=== PATIENT | female | born 1985 | race Caucasian/White ===

== ENCOUNTER 2016-10-26 04:38 | Inpatient (IN) | payer MEDICAID ==
[2016-10-26] VITALS (30 sets, daily range): BP systolic 85–171; BP diastolic 51–114; PULSE 66–98; RESP 16–20; TEMP 97.9–98.3; O2SAT 96–97
[~2016-10-26 04:38] MED LIST: POLY10O OD; Z.0.NO CURRENT MEDS; [UNRECOGNIZED DRUG - CODE] OD
[2016-10-26] MEDS ORDERED: CARV6.25 PO (04:59)
[2016-10-26] MEDS ORDERED: LISI10TA3 PO (04:59)
[2016-10-26] MEDS ORDERED: SPIR25TA PO (04:59)
[2016-10-26] MEDS ORDERED: SODIUM CHLORIDE 0.9% FLUSH 5 ML FLUSH IVF PRN (05:15)
[2016-10-26] MEDS ORDERED: ACETAMINOPHEN 325 MG TAB PO ONE (05:15)
[2016-10-26] MEDS ORDERED: hydrALAZINE HCL 20 MG/ML VIAL IV PUSH ONE (05:15)
[2016-10-26 05:17] LABS: AUTOMATED NEUTROPHIL # 12.6 TH/MM3 (1.8-7.7); BASOPHIL # 0.2 TH/MM3 (0-0.2); BASOPHIL % 1.3 % (0.0-2.0); EOSINOPHIL # 0.2 TH/MM3 (0-0.4); EOSINOPHIL % 0.9 % (0.0-4.0); HEMATOCRIT 31.9 % (35.0-46.0); HEMO FLAGS DIFF FINAL; LYMPH % 14.4 % (9.0-44.0); LYMPHOCYTE # 2.4 TH/MM3 (1.0-4.8); MEAN CELL VOLUME 86.4 FL (80.0-100.0); MEAN CORPUSCULAR HEMOGLOBIN 28.4 PG (27.0-34.0); MEAN CORPUSCULAR HGB CONC 32.9 % (32.0-36.0); MONO % 6.7 % (0.0-8.0); NEUT % 76.7 % (16.0-70.0); PLATELET COUNT 521 TH/MM3 (150-450); RED CELL DISTRIBUTION WIDTH 14.7 % (11.6-17.2); WHITE BLOOD COUNT 16.4 TH/MM3 (4.0-11.0)
[2016-10-26 05:42] LABS: ALKALINE PHOSPHATASE 136 U/L (45-117); ALT (GPT) 31 U/L (10-53); ANION GAP 11 MEQ/L (5-15); AST (GOT) 29 U/L (15-37); BICARBONATE 23.3 MEQ/L (21.0-32.0); BLOOD UREA NITROGEN 11 MG/DL (7-18); CHLORIDE 106 MEQ/L (98-107); GLOMERULAR FILTRATION RATE 90 ML/MIN (>89); SODIUM (NA) 140 MEQ/L (136-145); TOTAL BILIRUBIN ADULT 0.3 MG/DL (0.2-1.0)
[2016-10-26 05:47] LABS: APTT (PATIENT) 29.4 SEC (24.3-30.1); INTERNATIONAL NORMALIZED RATIO 0.9 RATIO
--- NOTE | 2016-10-26 05:55 | PD ---
HPI Chief Complaint: Respiratory Distress Time Seen by Provider: 04:49 Travel History International Travel<30 days: No Contact w/Intl Traveler<30days: No Traveled to known affect area: No History of Present Illness HPI 31-year-old female with on 10/19/16 in a hospital in [place], no significant complications, developed cardiomyopathy, discharged 2 days ago with coronary, lisinopril, and spironolactone, here for evaluation of elevated blood pressure, headache, shortness of breath, and feeling dehydrated. Patient woke up from sleep with a "pounding" diffuse headache. She checked her blood pressure and noted that it was elevated. Patient also feels a little short of breath which is at rest, worse with exertion, and is complaining of a mild sharp pain in her left chest. No fevers or chills. She has had nausea and a few episodes of vomiting. No cough. PFSH Past Medical History Cardiovascular Problems: Yes (post cardiomyopathy) Medical other: Yes (cardiomyopathy post delivery) ?: Not Past Surgical History Appendectomy: Yes Social History Alcohol Use: No Tobacco Use: Yes Substance Use: No Allergies-Medications (Allergen,Severity, Reaction): Coded Allergies: No Known Allergies (Verified , 10/26/16) Reported Meds & Prescriptions Reported Meds & Active Scripts Active Reported Coreg (Carvedilol) 6.25 Mg Tab 6.25 Mg PO BID Spironolactone 25 Mg Tab 25 Mg PO DAILY Lisinopril 10 Mg Tab 10 Mg PO DAILY Review of Systems Except as stated in HPI: all other systems reviewed are Neg Physical Exam Narrative GENERAL: Well-developed, well-nourished, comfortable, no acute distress. SKIN: Warm and dry. HEAD: Atraumatic. Normocephalic. EYES: Pupils equal and round. No scleral icterus. No injection or drainage. ENT: Mucous membranes pink and moist. NECK: Trachea midline. No JVD. No nuchal rigidity. CARDIOVASCULAR: Regular rate and rhythm. RESPIRATORY: No accessory muscle use. Clear to auscultation. Breath sounds equal bilaterally. GASTROINTESTINAL: Abdomen soft, non-tender, nondistended. MUSCULOSKELETAL: No obvious deformities. No clubbing. No cyanosis. No edema. NEUROLOGICAL: Awake and alert. No obvious cranial nerve deficits. Motor grossly within normal limits. Normal speech. PSYCHIATRIC: Appropriate mood and affect; insight and judgment normal. Data Data Last Documented VS Vital Signs Date Time Temp Pulse Resp B/P Pulse Ox O2 Delivery O2 Flow Rate FiO2 10/26/16 06:33 96 16 149/95 97 Room Air 10/26/16 04:45 97.9 Orders Complete Blood Count With Diff (10/26/16 05:02) Comprehensive Metabolic Panel (10/26/16 05:02) Prothrombin Time / Inr (Pt) (10/26/16 05:02) Act Partial Throm Time (Ptt) (10/26/16 05:02) Urinalysis - C+S If Indicated (10/26/16 05:02) Iv Access Insert/Monitor (10/26/16 05:02) Ecg Monitoring (10/26/16 05:02) Oximetry (10/26/16 05:02) Sodium Chloride 0.9% Flush (Ns Flush) (10/26/16 05:15) Electrocardiogram (10/26/16 05:02) Chest, Single Ap (10/26/16 ) Hydralazine Inj (Apresoline Inj) (10/26/16 05:15) Acetaminophen (Tylenol) (10/26/16 05:15) B-Type Natriuretic Peptide (10/26/16 05:05) Urine Culture (10/26/16 05:50) Metoclopramide Inj (Reglan Inj) (10/26/16 06:15) Labs Laboratory Tests Test 10/26/16 10/26/16 10/26/16 10/26/16 05:10 05:11 05:20 05:50 White Blood Count 16.4 TH/MM3 Red Blood Count 3.70 MIL/MM3 Hemoglobin 10.5 GM/DL Hematocrit 31.9 % Mean Corpuscular Volume 86.4 FL Mean Corpuscular Hemoglobin 28.4 PG Mean Corpuscular Hemoglobin 32.9 % Concent Red Cell Distribution Width 14.7 % Platelet Count 521 TH/MM3 Mean Platelet Volume 8.2 FL Neutrophils (%) (Auto) 76.7 % Lymphocytes (%) (Auto) 14.4 % Monocytes (%) (Auto) 6.7 % Eosinophils (%) (Auto) 0.9 % Basophils (%) (Auto) 1.3 % Neutrophils # (Auto) 12.6 TH/MM3 Lymphocytes # (Auto) 2.4 TH/MM3 Monocytes # (Auto) 1.1 TH/MM3 Eosinophils # (Auto) 0.2 TH/MM3 Basophils # (Auto) 0.2 TH/MM3 CBC Comment DIFF FINAL Differential Comment Sodium Level 140 MEQ/L Potassium Level 4.0 MEQ/L Chloride Level 106 MEQ/L Carbon Dioxide Level 23.3 MEQ/L Anion Gap 11 MEQ/L Blood Urea Nitrogen 11 MG/DL Creatinine 0.74 MG/DL Estimat Glomerular Filtration 90 ML/MIN Rate Random Glucose 124 MG/DL Calcium Level 8.8 MG/DL Total Bilirubin 0.3 MG/DL Aspartate Amino Transf 29 U/L (AST/SGOT) Alanine Aminotransferase 31 U/L (ALT/SGPT) Alkaline Phosphatase 136 U/L Total Protein 6.8 GM/DL Albumin 2.4 GM/DL B-Type Natriuretic Peptide 834 PG/ML Prothrombin Time 10.0 SEC Prothromb Time International 0.9 RATIO Ratio Activated Partial 29.4 SEC Thromboplast Time Urine Color YELLOW Urine Turbidity HAZY Urine pH 7.0 Urine Specific [place] 1.010 Urine Protein TRACE mg/dL Urine Glucose (UA) NEG mg/dL Urine Ketones NEG mg/dL Urine Occult Blood MOD Urine Nitrite NEG Urine Bilirubin NEG Urine Urobilinogen LESS THAN 2.0 MG/DL Urine Leukocyte Esterase LARGE Urine RBC /hpf Urine WBC 80 /hpf Urine Squamous Epithelial 1 /hpf Cells Urine Renal Epithelial Cells 4 /hpf Urine Bacteria RARE /hpf Urine Mucus FEW /lpf Microscopic Urinalysis Comment CULTURE INDICATED MDM Medical Decision Making Medical Screen Exam Complete: Yes Emergency Medical Condition: Yes Interpretation(s) EKG: Sinus, rate 95, normal intervals, no acute ischemic abnormality. Differential Diagnosis Preeclampsia, pulmonary edema, cardiomyopathy, pneumonia, PE, ACS, meningitis/ encephalitis unlikely Narrative Course Initial vital signs show heart rate 93, blood pressure 171/114, pulse ox 96% on room air, oral temp of 97.9F CBC shows to be BC 16.4, hemoglobin 10.5, hematocrit 31.9, platelets 521 CMP is unremarkable. BNP is 834 UA shows hazy urine, moderate occult blood, large leukocyte esterase, innumerable rbc's, 80 wbc's, rare bacteria, few mucus. This is not likely a UTI and is likely secondary to normal discharge . Chest x-ray interpreted by me shows no infiltrate, no pneumothorax, no free air. The patient was given a dose of hydralazine and her blood pressure improved to 137/84. She was given a dose of Tylenol with moderate improvement in her headache. Case discussed with OB hospitalist Dr. Odonnell who would like the patient to be transferred to the L&D floor for further monitoring and possible overnight admission. Diagnosis Primary Impression: hypertension Carlos Guzman MD Oct 26, 2016 05:55
[2016-10-26 06:06] LABS: BACTERIA, URINE RARE /hpf; BLOOD, URINE MOD (NEG); GLUCOSE,URINE NEG (NEG); KETONE, URINE NEG (NEG); MUCUS URINE FEW /lpf (OCC); NITRITE,URINE NEG (NEG); RENAL EPITHELIAL CELLS 4 /hpf; SQUAMOUS EPITHELIAL CELL URINE 1 /hpf (0-5); URINE COLOR YELLOW (YELLW/STRAW)
[2016-10-26 06:07] LABS: COMMENT (UR) CULTURE INDICATED; CULTURE IF INDICATED CULTURE INDICATED
[2016-10-26] MEDS ORDERED: METOCLOPRAMIDE HCL 10 MG/2 ML VIAL IV PUSH ONE (06:15)
--- NOTE | 2016-10-26 06:49 | RADRPT ---
EXAM DATE/TIME: 10/26/2016 05:46 [facility] COMPARISON: No previous studies available for comparison. INDICATIONS : Shortness of breath. MEDICAL HISTORY : None. SURGICAL HISTORY : None. ENCOUNTER: Initial ACUITY: 1 day PAIN SCORE: 0/10 LOCATION: Bilateral chest FINDINGS: A single view of the chest demonstrates the lungs to be symmetrically aerated without evidence of mas s, infiltrate or effusion. The cardiomediastinal contours are unremarkable. Osseous structures are intact. CONCLUSION: No acute disease. Arvind Poloe MD on October 26, 2016 at 6:47 Board Certified Radiologist. This report was verified electronically.
--- NOTE | 2016-10-26 07:43 | HHI.HP ---
HPI Chief Complaint Shortness of breath Date Seen: Oct 26, 2016 Travel History International Travel<30 Days: No Contact w/Intl Traveler<30Days: No Known Affected Area: No History of Present Illness HPI She has 31-year-old white female G3 now P3 who is a week from delivery vaginally in [place] induced for -induced hypertension, patient developed cardiomyopathy and was in the ICU there where hospital do not have the record yet,do not know what her ejection fraction was or other treatments but she was diuresed medicated was on magnesium sulfate for some period of time and was discharged on Coreg lisinopril and spironolactone. She was discharged home did well for for 5 days and now presents with shortness of breath mainly when she lays down ,, her uterine bleeding is minimal she has no increase in fever or abdominal pain. She was seen in the emergency room here at [facility] this morning with a blood pressure 170/110 and had several blood pressures in the 160 and 150 over 100s, she has trace protein in her urine and minimal edema, her chest x-ray was clear her EKG sinus rhythm she's transferred to the labor and delivery floor for cardiomyopathy and preeclampsia Para: 3 : 3 History Obstetric History Obstetric History 3 vaginal deliveries this last delivery was associated hypertension was induced for that hypertensive problem she states that she's had no history of that with her other babies Social History Alcohol Use: No Tobacco Use: Yes Substance Abuse: No Allergies-Medications (Allergen,Severity, Reaction): Coded Allergies: No Known Allergies (Verified , 10/26/16) Home Meds Reported Medications Carvedilol (Coreg)6.25 Mg Tab6.25 Mg PO BID #60 TAB Ref 0 10/26/16 Spironolactone 25 Mg Tab25 Mg PO DAILY #30 TAB Ref 0 10/26/16 Lisinopril 10 Mg Tab10 Mg PO DAILY #30 TAB Ref 0 10/26/16 Discontinued Reported Medications Miscellaneous (No Current Meds) Misc Ref 0 08/23/08 Discontinued Scripts Nepafenac (Nevanac)0.1 % Sus1 Drop OD Q8 #1 Ref 0 SHAKE WELL BEFORE USING Prov:Daniel Conde Jr, MD 08/23/08 Polymyxin/Trimethoprim (Polytrim Opth)10 Ml Soln1 Drop OD Q4 7 Days Ref 0 Prov:Daniel Conde Jr, MD 08/23/08 Review of Systems Respiratory: Short of Breath Physical Exam Vital Signs Date Time Temp Pulse Resp B/P Pulse Ox O2 Delivery O2 Flow Rate FiO2 10/26/16 06:33 96 16 149/95 97 Room Air 10/26/16 06:05 89 16 157/105 97 Room Air 10/26/16 05:28 16 97 10/26/16 05:27 16 97 10/26/16 05:25 98 16 168/103 97 Room Air 10/26/16 04:45 97.9 93 20 171/114 96 Narrative GENERAL: Well-nourished, well-developed patient. SKIN: Warm and dry. HEAD: Normocephalic and atraumatic. EYES: No scleral icterus. No injection or drainage. ENT: No nasal drainage noted. Mucous membranes pink. Airway patent. NECK: Supple, trachea midline. No JVD. CARDIOVASCULAR: Regular rate and rhythm without murmurs, gallops, or rubs. RESPIRATORY: Breath sounds equal bilaterally. No accessory muscle use. Clear to auscultation BREASTS: Bilateral exam showed no masses , no retractions, no nipple discharge. ABDOMEN/GI: Abdomen soft, non-tender, bowel sounds present, no rebound, no guarding uterus below umbilicus EXTREMITIES: No cyanosis or edema. BACK: Nontender without obvious deformity. No CVA tenderness. NEUROLOGICAL: Awake and alert. Motor and sensory grossly within normal limits. Five out of 5 muscle strength in all muscle groups. Normal speech. Data Data Orders Complete Blood Count With Diff (10/26/16 05:02) Comprehensive Metabolic Panel (10/26/16 05:02) Prothrombin Time / Inr (Pt) (10/26/16 05:02) Act Partial Throm Time (Ptt) (10/26/16 05:02) Urinalysis - C+S If Indicated (10/26/16 05:02) Iv Access Insert/Monitor (10/26/16 05:02) Ecg Monitoring (10/26/16 05:02) Oximetry (10/26/16 05:02) Sodium Chloride 0.9% Flush (Ns Flush) (10/26/16 05:15) Electrocardiogram (10/26/16 05:02) Chest, Single Ap (10/26/16 ) Hydralazine Inj (Apresoline Inj) (10/26/16 05:15) Acetaminophen (Tylenol) (10/26/16 05:15) B-Type Natriuretic Peptide (10/26/16 05:05) Urine Culture (10/26/16 05:50) Metoclopramide Inj (Reglan Inj) (10/26/16 06:15) Labs Laboratory Tests Test 10/26/16 10/26/16 10/26/16 10/26/16 05:10 05:11 05:20 05:50 White Blood Count 16.4 Red Blood Count 3.70 Hemoglobin 10.5 Hematocrit 31.9 Mean Corpuscular Volume 86.4 Mean Corpuscular Hemoglobin 28.4 Mean Corpuscular Hemoglobin 32.9 Concent Red Cell Distribution Width 14.7 Platelet Count 521 Mean Platelet Volume 8.2 Neutrophils (%) (Auto) 76.7 Lymphocytes (%) (Auto) 14.4 Monocytes (%) (Auto) 6.7 Eosinophils (%) (Auto) 0.9 Basophils (%) (Auto) 1.3 Neutrophils # (Auto) 12.6 Lymphocytes # (Auto) 2.4 Monocytes # (Auto) 1.1 Eosinophils # (Auto) 0.2 Basophils # (Auto) 0.2 CBC Comment DIFF FINAL Differential Comment Sodium Level 140 Potassium Level 4.0 Chloride Level 106 Carbon Dioxide Level 23.3 Anion Gap 11 Blood Urea Nitrogen 11 Creatinine 0.74 Estimat Glomerular Filtration 90 Rate Random Glucose 124 Calcium Level 8.8 Total Bilirubin 0.3 Aspartate Amino Transf 29 (AST/SGOT) Alanine Aminotransferase 31 (ALT/SGPT) Alkaline Phosphatase 136 Total Protein 6.8 Albumin 2.4 B-Type Natriuretic Peptide 834 Prothrombin Time 10.0 Prothromb Time International 0.9 Ratio Activated Partial 29.4 Thromboplast Time Urine Color YELLOW Urine Turbidity HAZY Urine pH 7.0 Urine Specific [place] 1.010 Urine Protein TRACE Urine Glucose (UA) NEG Urine Ketones NEG Urine Occult Blood MOD Urine Nitrite NEG Urine Bilirubin NEG Urine Urobilinogen LESS THAN 2.0 Urine Leukocyte Esterase LARGE Urine RBC Urine WBC 80 Urine Squamous Epithelial 1 Cells Urine Renal Epithelial Cells 4 Urine Bacteria RARE Urine Mucus FEW Microscopic Urinalysis Comment CULTURE INDICATED Date/Time Procedure Status Source Growth 10/26/16 05:50 Urine Culture Worksheet Urine Clean Catch Pending Assessment/Plan Assessment and Plan She is 31-year-old white female is a weeks status post vaginal delivery in [place] for hypertension and induction , she developed cardiomyopathy afterwards was in the ICU was diuresed and treated I do not have the records yet on the ejection fraction or other parameters are her condition there but she is presented here with exacerbation of same with shortness of breath mainly when she is lying back she's better when she sits up classic congestive heart failure type findings, her blood pressure here 170/110,, 160s over 105, protein trace edema minimal, her lungs are clear and clear on x-ray, EKG sinus rhythm Plan is to admit the patient hospital administer magnesium sulfate once again for 12-24 hrs. check an ECHO for ejection fraction, antihypertensives when necessary., observe for clinical improvement, cardiology consult Jorge Odonnell II, MD Oct 26, 2016 07:43
[2016-10-26] MEDS ORDERED: CALCIUM GLUCONATE 10% 1 GM/10 ML VIAL IV PUSH PRN (08:00)
[2016-10-26] MEDS ORDERED: ONDANSETRON HCL 4 MG/2 ML VIAL IV PRN (08:00)
[2016-10-26] MEDS ORDERED: NIFEdipine 10 MG CAP PO PRN ×3 (08:00→08:30)
[2016-10-26] MEDS ORDERED: MAGNESIUM SULFATE 4 GM PREMIX 100 ML IV ONE (08:00)
[2016-10-26] MEDS: SODIUM CHLORIDE 0.9% FLUSH 5 ML FLUSH IV SCH (09:00)
[2016-10-26] MEDS ORDERED: LABETALOL HCL 100 MG/20 ML VIAL IV PUSH PRN (09:00)
--- NOTE | 2016-10-26 09:35 | EKG ---
Date Performed: 10/26/2016 Time Performed: 05:43:11 PTAGE: 31 years EKG: Sinus rhythm ABNORMAL ECG NO PREVIOUS TRACING DOCTOR: Gabriel Vogt Interpretating Date/Time 10/26/2016 09:34:05
[2016-10-26] MEDS: LACTATED RINGER'S 1000 ML INJ 1,000 ML IV SCH (10:00)
[2016-10-26] MEDS: MAGNESIUM SULFATE 40 GM PREMIX 1,000 ML IV SCH (10:02)
[2016-10-26] MEDS: SODIUM CHLORIDE 0.9% FLUSH 5 ML FLUSH IV PRN (10:03)
[2016-10-26] MEDS: ACETAMINOPHEN 325 MG TAB PO PRN ×2 (10:23→15:33)
[2016-10-26] MEDS: SULFAMETHOXAZOLE-TRIMETHOPRIM DS 800-160 MG TAB PO SCH ×2 (13:45→21:14)
[2016-10-26] MEDS: LISINOPRIL 10 MG TAB PO SCH (15:26)
[2016-10-26] MEDS: CARVEDILOL 6.25 MG TAB PO SCH ×2 (15:26→21:14)
[2016-10-26] MEDS: SPIRONOLACTONE 25 MG TAB PO SCH (15:26)
--- NOTE | 2016-10-26 19:20 | MB ---
cc: ENIO MARSHALL DATE OF CONSULTATION 10/26/2016 REASON FOR CONSULTATION Ms. Brian is a 31-year-old white female one week . She was induced due to preeclampsia. She was diagnosed with cardiomyopathy. She was transferred to [facility] from [place] for further management. PAST MEDICAL HISTORY She has had past medical history positive for: 1. Three deliveries. 2. History of hypertension. 3. Recent diagnosis of cardiomyopathy. 4. History of preeclampsia. MEDICATIONS Include: 1. Carvedilol. 2. Spironolactone. 3. Lisinopril. ALLERGIES NONE. SOCIAL HISTORY The patient is a smoker. She smoked . She does not drink alcohol. Denies using drugs. FAMILY HISTORY Negative for coronary artery disease. REVIEW OF SYSTEMS Otherwise negative. PHYSICAL EXAMINATION VITAL SIGNS: Blood pressure 121/88, pulse 68 and regular. HEENT: Negative. 2+ carotid upstroke. No bruits. LUNGS: Clear. HEART: Regular with no murmur, gallop or rub. ABDOMEN: Soft. No bruits. EXTREMITIES: Without edema. 2+ distal pulses. NEUROLOGICAL: Grossly nonfocal. EKG was reviewed and showed normal sinus rhythm with normal axis and intervals. No acute changes. LABORATORY DATA Hemoglobin 10.5. Potassium 4.0. Creatinine 0.7. AST 29, ALT 31. BNP 834. DIAGNOSES 1. cardiomyopathy. 2. Hypertension. 3. Preeclampsia. 4. Recent vaginal delivery. 5. Smoking. DISPOSITION Ms. Brian will be monitored on telemetry. She will be treated for congestive heart failure with beta laxmi, CINDY inhibitor and spironolactone. We need to control well her hypertension. We will obtain echocardiogram to evaluate her left ventricular function. I will follow her for cardiology during her hospitalization. She will then follow up with her physicians in [place] after discharge. MD TRACE Sampson/LUDA /4:58 PM /7:13 PM JAMAR
[2016-10-27] VITALS (26 sets, daily range): BP systolic 92–135; BP diastolic 59–89; PULSE 61–94; RESP 16–18; TEMP 97.8–98; O2SAT 97–99
[2016-10-27] MEDS: MAGNESIUM SULFATE 40 GM PREMIX 1,000 ML IV SCH (03:46)
[2016-10-27] MEDS: ACETAMINOPHEN 325 MG TAB PO PRN (05:15)
--- NOTE | 2016-10-27 08:47 | HHI.OB ---
Subjective Post Day: 8 Remarks No new complaints today; patient says she is tired now that she is on Magnesium , which should be finished ~10am. She expresses concerns that her BP meds will need to be adjusted once off the magnesium to control blood pressure since they were 160s-170s/100s-110s at home prior to arrival. She denies chest pain, shortness of breath, nausea, vomiting. She states she is hungry. (Aditi Stevenson MD R1) Remarks I rounded on the patient. I rounded with the resident. I reviewed the resident' s assessment and plan of care for this patient. I am in agreement with the plan of care for this patient. (Raiza Vaz MD) Objective Vitals/I&O Vital Signs Date Time Temp Pulse Resp B/P Pulse Ox O2 Delivery O2 Flow Rate FiO2 10/27/16 06:09 18 10/27/16 06:00 71 111/77 10/27/16 05:00 69 114/73 10/27/16 04:21 18 10/27/16 04:00 68 104/70 10/27/16 03:35 16 10/27/16 03:00 61 108/76 10/27/16 02:15 16 10/27/16 02:00 65 107/76 10/27/16 01:36 18 10/27/16 01:00 65 98/63 10/27/16 00:23 18 10/27/16 00:00 67 92/59 10/26/16 23:49 98.1 10/26/16 23:47 68 90/57 10/26/16 23:46 18 10/26/16 23:00 67 85/51 10/26/16 22:46 18 10/26/16 22:00 69 99/63 10/26/16 21:29 18 10/26/16 21:00 70 107/80 10/26/16 20:22 18 10/26/16 20:00 69 105/75 10/26/16 19:47 98.3 10/26/16 19:45 18 10/26/16 19:00 66 107/70 10/26/16 18:00 77 126/82 10/26/16 17:10 20 10/26/16 17:00 74 112/76 10/26/16 17:00 18 10/26/16 16:00 71 129/86 10/26/16 15:00 68 121/88 10/26/16 15:00 20 10/26/16 14:00 72 125/93 10/26/16 13:00 82 118/95 10/26/16 12:48 85 127/94 10/26/16 11:23 20 10/26/16 10:23 20 10/26/16 10:23 20 10/26/16 10:16 135/96 10/26/16 10:16 89 10/26/16 10:16 89 10/26/16 10:07 90 134/92 10/26/16 09:56 88 147/94 Objective Remarks GENERAL: Well-nourished, well-developed female in no acute distress. CARDIOVASCULAR: Regular rate and rhythm without murmurs, gallops, or rubs. RESPIRATORY: Breath sounds equal bilaterally. No accessory muscle use. No crackles or wheezes. ABDOMEN/GI: Abdomen soft, non-tender. Fundus: Firm, non-tender below umbilicus. GENITOURINARY: Light bleeding. EXTREMITIES: No cyanosis or edema, non-tender, without signs of DVT. 2+ pulses in upper and lower extremities bilaterally. Medications and IVs Current Medications Medications (Trade) Dose Ordered Sig/Sandra Route Start Time Stop Time Status Last Admin IV Flush 2 ml 2 ml UNSCH PRN IVF 10/26/16 05:15 10/26/16 06:04 (Lr 1000 ml Inj) 1,000 ml @ 75 mls/hr [id number] IV 10/26/16 07:46 10/26/16 10:00 (NS Flush) 2 ml UNSCH PRN IV 10/26/16 08:00 10/26/16 10:03 IV Flush 2 ml 2 ml BID IV 10/26/16 09:00 (Magnesium Sulfate 40 Gm Premix) 1,000 ml @ 50 mls/hr Q20H IV 10/26/16 07:46 10/26/16 10:02 (Calcium Gluconate Inj) 1 gm UNSCH PRN IV PUSH 10/26/16 08:00 (Tylenol) 650 mg Q4H PRN PO 10/26/16 08:00 10/27/16 05:15 (Zofran Inj) 4 mg Q6H PRN IV 10/26/16 08:00 (Bactrim Ds 800-160 Mg) 1 tab Q12HR PO 10/26/16 09:00 10/26/16 21:14 (Coreg) 6.25 mg BID PO 10/26/16 14:00 10/26/16 21:14 (Prinivil) 10 mg DAILY PO 10/26/16 14:00 10/26/16 15:26 (Aldactone) 25 mg DAILY PO 10/26/16 14:00 10/26/16 15:26 (Aditi Stevenson MD R1) Assessment/Plan Assessment and Plan 31-year-old female , one-week post- status post vaginal delivery in [place] for hypertension and induction. She presented to OB ED with SOB and HTN at home in 170s/110s range, concerning for acute congestive heart failure. She developed cardiomyopathy requiring ICU stay for diuresis and medical management of HTN. HTN now well-controlled, 127/84 most recently; 110s/70s over last 12 hours EKG sinus rhythm CXR showing no evidence of cardiac enlargement or effusion Echo from outside hospital - records pending Echo done at [facility], read is still pending Post- CM -Cardiology consulted - EKG, echo ordered -Continue Coreg, lisinopril, spironolactone -Strict BP management, currently 110s/70s HTN -Treated for Pre-E with Mg at [facility] -Now 110s/70s -Continue Mg for 24 hr - d/c approx 10am -Continue medications as above, titrate as needed once Mg is discontinued -Add additional anti-HTN only after other medications maximized per medical billing specialist or PCP DW Dr. Fernandez Discharge Planning Will follow-up with cardiology for recommendations regarding discharge planning (Aditi Stevenson MD R1) Aditi Stevenson MD R1 Oct 27, 2016 08:47 Raiza Vaz MD Oct 27, 2016 10:31
[2016-10-27] MEDS: LISINOPRIL 10 MG TAB PO SCH (08:52)
[2016-10-27] MEDS: SULFAMETHOXAZOLE-TRIMETHOPRIM DS 800-160 MG TAB PO SCH ×2 (08:52→21:41)
[2016-10-27] MEDS: SPIRONOLACTONE 25 MG TAB PO SCH (08:52)
[2016-10-27] MEDS: CARVEDILOL 6.25 MG TAB PO SCH ×2 (08:52→21:41)
[2016-10-27] MEDS: SODIUM CHLORIDE 0.9% FLUSH 5 ML FLUSH IV PRN (08:59)
[2016-10-27] MEDS: SODIUM CHLORIDE 0.9% FLUSH 5 ML FLUSH IV SCH ×3 (09:00→21:41)
[2016-10-27] MEDS: LACTATED RINGER'S 1000 ML INJ 1,000 ML IV SCH ×2 (10:26→23:46)
--- NOTE | 2016-10-27 10:37 | EC ---
Study Study Date:10/26/2016 STUDY CONCLUSIONS SUMMARY - Left ventricle: The cavity size was normal. Wall thickness was normal. Systolic function was moderately to severely reduced. The estimated ejection fraction was in the range of 30% to 35%. Wall motion was normal; there were no regional wall motion abnormalities. - Mitral valve: Mild regurgitation. - Tricuspid valve: Mild regurgitation. If LV function is below 40, please consider prescribing an ACEI or ARB or document rationale for non-use. PROCEDURE DATA STUDY STATUS: Elective. Procedure: Transthoracic echocardiography. Image quality was good. Scanning was performed from the parasternal, apical, and subcostal acoustic windows. Study completion: The patient tolerated the procedure well. Transthoracic echocardiography. M-mode, complete 2D, complete spectral Doppler, and color Doppler. Height: Height: 62in. Weight: Weight: 119.8lb. Body mass index: BMI: 21.9kg/m^2. Body surface area: BSA: 1.54m^2. Patient status: Inpatient. CARDIAC ANATOMY LEFT VENTRICLE: The cavity size was normal. Wall thickness was normal. Systolic function was moderately to severely reduced. The estimated ejection fraction was in the range of 30% to 35%. Wall motion was normal; there were no regional wall motion abnormalities. AORTIC VALVE: Trileaflet; normal thickness leaflets. Doppler: Transvalvular velocity was within the normal range. There was no stenosis. No regurgitation. Valve area: 1.76cm^2(VTI). Indexed valve area: 1.14cm^2/m^2 (VTI). Valve area: 1.87cm^2 (Vmax). Indexed valve area: 1.21cm^2/m^2 (Vmax). Mean gradient: 3mm Hg (S). AORTA: Aortic root: The aortic root was normal in size. MITRAL VALVE: Structurally normal valve. Doppler: Transvalvular velocity was within the normal range. There was no evidence for stenosis. Mild regurgitation. Peak gradient: 3mm Hg (D). LEFT ATRIUM: The atrium was normal in size. RIGHT VENTRICLE: The cavity size was normal. Wall thickness was normal. PULMONIC VALVE: Doppler: Transvalvular velocity was within the normal range. There was no evidence for stenosis. No regurgitation. TRICUSPID VALVE: Structurally normal valve. Doppler: Transvalvular velocity was within the normal range. Mild regurgitation. PULMONARY ARTERY: The main pulmonary artery was normal-sized. Systolic pressure was within the normal range. RIGHT ATRIUM: The atrium was normal in size. PERICARDIUM: There was no pericardial effusion. SYSTEMIC VEINS: Inferior vena cava: The vessel was normal in size. Patient weight: 119.8lb _Ejection fraction:_ 65-75% _Fractional shortening:_ 32% up to 5Kg 5-11.5Kg 11.6-22.9Kg 23-45Kg 45-57Kg Aortic Root 7-13 <17 13-22 17-27 17-27 LA diam 6-13 <23 24-38 33-47 37-40 RVID 10-17 7-15 7-15 7-18 8-17 LVIDd 12-22 <32 24-38 33-47 37-40 LVPW 2-4 3-6 5-7 6-8 7-8 IVS 2-4 3-6 5-7 6-8 7-8 BASIC MEASUREMENTS ADULT NORMAL Left ventricle LV internal dimension, ED, chordal *53.1 mm 43-52 level, PLAX LV internal dimension, ES, chordal *46.9 mm 23-38 level, PLAX Fractional shortening, chordal level, *12 % >29 PLAX LV posterior wall thickness, ED 6.85 mm IVS/LVPW ratio, ED 1.01 <1.3 Volume, ED, MOD, 1-plane 133 ml Volume, ES, MOD, 1-plane 79 ml Ejection fraction, MOD, 1-plane 41 % Stroke volume, MOD, 1-plane 54 ml Volume index, ED, MOD, 1-plane 86 ml/m^2 Volume index, ES, MOD, 1-plane 51 ml/m^2 Stroke index, MOD, 1-plane 35.1 ml/m^2 Volume, ED, MOD, 2-plane 139 ml Volume, ES, MOD, 2-plane 82 ml Ejection fraction, MOD, 2-plane 41 % Stroke volume, MOD, 2-plane 57 ml Volume index, ED, MOD, 2-plane 90 ml/m^2 Volume index, ES, MOD, 2-plane 53 ml/m^2 Stroke index, MOD, 2-plane 37 ml/m^2 Ventricular septum Septal thickness, ED 6.89 mm Aortic valve Leaflet separation 18 mm 15-26 Aorta Root diameter, ED 28 mm BASIC MEASUREMENTS ADULT NORMAL Aortic valve Leaflet separation 18 mm 15-26 DOPPLER MEASUREMENTS ADULT NORMAL Aortic valve Peak velocity, S 123 cm/s Mean velocity, S 86.2 cm/s VTI, S 19.7 cm Mean gradient, S 3 mm Hg Valve area, VTI 1.76 cm^2 Valve area index, VTI 1.14 cm^2/m^2 Valve area, Vmax 1.87 cm^2 Valve area index, Vmax 1.21 cm^2/m^2 Mitral valve Peak E-wave velocity 86.4 cm/s Peak A-wave velocity 114 cm/s Deceleration time 165 ms 150-230 Peak gradient, D 3 mm Hg Peak E/A ratio 0.8 Tricuspid valve Regurgitant peak velocity 216 cm/s Peak RV-RA gradient, S 19 mm Hg Maximal regurgitant velocity 216 cm/s Pulmonic valve Peak velocity, S 72.9 cm/s LEGEND: Mean values are shown as u=mean value. Asterisk (*) medel values outside specified normal range. Prepared and signed by Gee Menezes [id number]
--- NOTE | 2016-10-27 11:05 | HHI.PR ---
Addendum to Inpatient Note Addendum Reason: Additional Documentation Additional Information 31-year-old female who was one-week admitted to OB floor for workup of shortness of breath and hypertension. She is noted to have a prolonged hospital stay at [facility] for PPCM and hypertension management, requiring ICU stay at that time. Cardiology was consulted yesterday. EKG at admission showing normal sinus rhythm without other abnormalities. Labs obtained at admission were grossly within normal limits aside from mild anemia. UA on admission reflexed culture due to large leukocyte esterase, urine culture is pending, patient is asymptomatic. Patient's echo completed yesterday was faxed to the floor as it was not in the EMR. Reviewing report: it is significant for an EF of 30-35%, mitral and tricuspid regurgitation. Her echo from her hospital stay at [facility] showed an EF of 35% as well, based only on a progress note on 10/20/16 ( echocardiogram report not available in faxed records). Records from hospital stay at [facility] are in patient's physical chart. Call was placed to Dr. Menezes's office; he saw patient yesterday. Request for transfer to floor for telemetry noted by phone. She is asymptomatic at this time, however, given echo results, we'll transfer patient to [facility] per his request. She may be appropriate for regular telemetry floor after assessment. Transfer order is in. Given recent vaginal delivery, hypertension and shortness of breath, she was on magnesium for neuro protection for 24 hours; this was discontinued at 10 AM today. Patient is to continue Coreg , lisinopril, spironolactone which she was on as outpatient. Patient was previously admitted for observation, admission to inpatient was placed with Dr. Menezes as attending physician. CECILIA Odonnell, OB Hospitalist attending Aditi Stevenson MD R1 Oct 27, 2016 11:05
--- NOTE | 2016-10-27 15:16 | PD.CARD.PN ---
Subjective Subjective Remarks No CP or SOB, feels better Objective Medications Current Medications Medications (Trade) Dose Ordered Sig/Sandra Route Start Time Stop Time Status Last Admin IV Flush 2 ml 2 ml UNSCH PRN IVF 10/26/16 05:15 10/26/16 06:04 (Lr 1000 ml Inj) 1,000 ml @ 75 mls/hr [id number] IV 10/26/16 07:46 10/26/16 10:00 (NS Flush) 2 ml UNSCH PRN IV 10/26/16 08:00 10/26/16 10:03 IV Flush 2 ml 2 ml BID IV 10/26/16 09:00 10/27/16 10:05 (Magnesium Sulfate 40 Gm Premix) 1,000 ml @ 50 mls/hr Q20H IV 10/26/16 07:46 10/26/16 10:02 (Calcium Gluconate Inj) 1 gm UNSCH PRN IV PUSH 10/26/16 08:00 (Tylenol) 650 mg Q4H PRN PO 10/26/16 08:00 10/27/16 05:15 (Zofran Inj) 4 mg Q6H PRN IV 10/26/16 08:00 (Bactrim Ds 800-160 Mg) 1 tab Q12HR PO 10/26/16 09:00 10/27/16 08:52 (Coreg) 6.25 mg BID PO 10/26/16 14:00 10/27/16 08:52 (Prinivil) 10 mg DAILY PO 10/26/16 14:00 10/27/16 08:52 (Aldactone) 25 mg DAILY PO 10/26/16 14:00 10/27/16 08:52 Vital Signs / I&O Vital Signs Date Time Temp Pulse Resp B/P Pulse Ox O2 Delivery O2 Flow Rate FiO2 10/27/16 12:30 97.8 88 16 110/74 99 10/27/16 06:09 18 10/27/16 06:00 71 111/77 10/27/16 05:00 69 114/73 10/27/16 04:21 18 10/27/16 04:00 68 104/70 10/27/16 03:35 16 10/27/16 03:00 61 108/76 10/27/16 02:15 16 10/27/16 02:00 65 107/76 10/27/16 01:36 18 10/27/16 01:00 65 98/63 10/27/16 00:23 18 10/27/16 00:00 67 92/59 10/26/16 23:49 98.1 10/26/16 23:47 68 90/57 10/26/16 23:46 18 10/26/16 23:00 67 85/51 10/26/16 22:46 18 10/26/16 22:00 69 99/63 10/26/16 21:29 18 10/26/16 21:00 70 107/80 10/26/16 20:22 18 10/26/16 20:00 69 105/75 10/26/16 19:47 98.3 10/26/16 19:45 18 10/26/16 19:00 66 107/70 10/26/16 18:00 77 126/82 10/26/16 17:10 20 10/26/16 17:00 74 112/76 10/26/16 17:00 18 10/26/16 16:00 71 129/86 Physical Exam GENERAL: SKIN: Warm and dry. HEAD: Normocephalic. EYES: No scleral icterus. No injection or drainage. NECK: Supple, trachea midline. No JVD or lymphadenopathy. CARDIOVASCULAR: Regular rate and rhythm without murmurs, gallops, or rubs. RESPIRATORY: Breath sounds equal bilaterally. No accessory muscle use. GASTROINTESTINAL: Abdomen soft, non-tender, nondistended. MUSCULOSKELETAL: No cyanosis, or edema. Laboratory Laboratory Tests Test 10/26/16 10/26/16 10/26/16 10/26/16 05:10 05:11 05:20 05:50 White Blood Count 16.4 TH/MM3 Red Blood Count 3.70 MIL/MM3 Hemoglobin 10.5 GM/DL Hematocrit 31.9 % Mean Corpuscular Volume 86.4 FL Mean Corpuscular Hemoglobin 28.4 PG Mean Corpuscular Hemoglobin 32.9 % Concent Red Cell Distribution Width 14.7 % Platelet Count 521 TH/MM3 Mean Platelet Volume 8.2 FL Neutrophils (%) (Auto) 76.7 % Lymphocytes (%) (Auto) 14.4 % Monocytes (%) (Auto) 6.7 % Eosinophils (%) (Auto) 0.9 % Basophils (%) (Auto) 1.3 % Neutrophils # (Auto) 12.6 TH/MM3 Lymphocytes # (Auto) 2.4 TH/MM3 Monocytes # (Auto) 1.1 TH/MM3 Eosinophils # (Auto) 0.2 TH/MM3 Basophils # (Auto) 0.2 TH/MM3 CBC Comment DIFF FINAL Differential Comment Sodium Level 140 MEQ/L Potassium Level 4.0 MEQ/L Chloride Level 106 MEQ/L Carbon Dioxide Level 23.3 MEQ/L Anion Gap 11 MEQ/L Blood Urea Nitrogen 11 MG/DL Creatinine 0.74 MG/DL Estimat Glomerular Filtration 90 ML/MIN Rate Random Glucose 124 MG/DL Calcium Level 8.8 MG/DL Total Bilirubin 0.3 MG/DL Aspartate Amino Transf 29 U/L (AST/SGOT) Alanine Aminotransferase 31 U/L (ALT/SGPT) Alkaline Phosphatase 136 U/L Total Protein 6.8 GM/DL Albumin 2.4 GM/DL B-Type Natriuretic Peptide 834 PG/ML Prothrombin Time 10.0 SEC Prothromb Time International 0.9 RATIO Ratio Activated Partial 29.4 SEC Thromboplast Time Urine Color YELLOW Urine Turbidity HAZY Urine pH 7.0 Urine Specific [place] 1.010 Urine Protein TRACE mg/dL Urine Glucose (UA) NEG mg/dL Urine Ketones NEG mg/dL Urine Occult Blood MOD Urine Nitrite NEG Urine Bilirubin NEG Urine Urobilinogen LESS THAN 2.0 MG/DL Urine Leukocyte Esterase LARGE Urine RBC /hpf Urine WBC 80 /hpf Urine Squamous Epithelial 1 /hpf Cells Urine Renal Epithelial Cells 4 /hpf Urine Bacteria RARE /hpf Urine Mucus FEW /lpf Microscopic Urinalysis Comment CULTURE INDICATED Imaging Last Impressions Chest X-Ray 10/26/16 0000 Signed Impressions: Service Date/Time: Wednesday, October 26, 2016 05:46 - CONCLUSION: No acute disease. Arvind Poole MD Assessment and Plan Problem List: (1) cardiomyopathy (2) HTN (hypertension) (3) Preeclampsia Assessment and Plan Continue tx for CHF with CINDY-I, beta laxmi, spironolactone. Increase activity. 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 Gee Menezes MD Oct 27, 2016 15:16
[2016-10-28] VITALS (16 sets, daily range): BP systolic 109–124; BP diastolic 62–86; PULSE 72–94; RESP 16–18; TEMP 98.5–98.8; O2SAT 95–100
[2016-10-28] MEDS: SULFAMETHOXAZOLE-TRIMETHOPRIM DS 800-160 MG TAB PO SCH (08:15)
[2016-10-28] MEDS: LISINOPRIL 10 MG TAB PO SCH (08:16)
[2016-10-28] MEDS: SODIUM CHLORIDE 0.9% FLUSH 5 ML FLUSH IV SCH (08:16)
[2016-10-28] MEDS: SPIRONOLACTONE 25 MG TAB PO SCH (08:16)
[2016-10-28] MEDS: CARVEDILOL 6.25 MG TAB PO SCH (08:16)
--- NOTE | 2016-10-28 09:38 | HHI.OB ---
Subjective Remarks 31 year old about one week post- after induced vaginal delivery for induced hypertension. She is here for abhishek- cardiomyopathy and elevated blood pressure. Before admission she was having orthopnea and elevated blood pressures at home. This morning she is resting in bed. Lochia is minimal. She is ambulating without difficulty. She is not experiencing exertional dyspnea. She is not experiencing orthopnea. She has completed a course of magnesium sulfate for seizure prophylaxis. Her blood pressures have been normal since day of admission. She has no chest pain, shortness of breath, nausea, vomiting, or abdominal pain. She reports no edema. She has a good appetite. Objective Vitals/I&O Vital Signs Date Time Temp Pulse Resp B/P Pulse Ox O2 Delivery O2 Flow Rate FiO2 10/28/16 06:00 76 10/28/16 05:00 76 10/28/16 04:40 98.7 76 16 109/66 95 10/28/16 04:00 74 10/28/16 03:00 82 10/28/16 02:00 74 10/28/16 01:00 92 10/28/16 00:38 98.7 82 16 124/86 98 10/28/16 00:00 88 10/27/16 23:00 87 10/27/16 22:00 92 10/27/16 21:00 86 10/27/16 20:39 98.0 94 16 135/89 99 10/27/16 20:00 94 10/27/16 19:00 82 10/27/16 18:00 94 10/27/16 17:00 90 10/27/16 16:00 97.9 82 18 127/85 97 10/27/16 16:00 87 10/27/16 15:00 90 10/27/16 14:00 90 10/27/16 13:00 94 10/27/16 12:30 97.8 88 16 110/74 99 Objective Remarks GENERAL: Resting in bed Skin: No rashes HEENT: Normocephalic, moist mucous membranes Neck: No JVD, no thyromegaly CARDIOVASCULAR: Regular rate and rhythm without murmurs, gallops, or rubs. Normal pulses and capillary refill. RESPIRATORY: Breath sounds equal bilaterally. No accessory muscle use. No crackles or wheezes. ABDOMEN/GI: Abdomen soft, non-tender. Fundus: Firm, non-tender below umbilicus. GENITOURINARY: Light bleeding. EXTREMITIES: No edema Medications and IVs Current Medications Medications (Trade) Dose Ordered Sig/Sandra Route Start Time Stop Time Status Last Admin IV Flush 2 ml 2 ml UNSCH PRN IVF 10/26/16 05:15 10/26/16 06:04 (Lr 1000 ml Inj) 1,000 ml @ 75 mls/hr [id number] IV 10/26/16 07:46 10/26/16 10:00 (NS Flush) 2 ml UNSCH PRN IV 10/26/16 08:00 10/26/16 10:03 IV Flush 2 ml 2 ml BID IV 10/26/16 09:00 10/28/16 08:16 (Magnesium Sulfate 40 Gm Premix) 1,000 ml @ 50 mls/hr Q20H IV 10/26/16 07:46 10/26/16 10:02 (Calcium Gluconate Inj) 1 gm UNSCH PRN IV PUSH 10/26/16 08:00 (Tylenol) 650 mg Q4H PRN PO 10/26/16 08:00 10/27/16 05:15 (Zofran Inj) 4 mg Q6H PRN IV 10/26/16 08:00 (Bactrim Ds 800-160 Mg) 1 tab Q12HR PO 10/26/16 09:00 10/28/16 08:15 (Coreg) 6.25 mg BID PO 10/26/16 14:00 10/28/16 08:16 (Prinivil) 10 mg DAILY PO 10/26/16 14:00 10/28/16 08:16 (Aldactone) 25 mg DAILY PO 10/26/16 14:00 10/28/16 08:16 Assessment/Plan Assessment and Plan 31-year-old female , one-week post- status post induced vaginal delivery in [place] for induced hypertension. She presented to OB ED with SOB and HTN at home in 170s/110s range, concerning for acute congestive heart failure. BP now well-controlled. EKG sinus rhythm. CXR showing no evidence of cardiac enlargement or effusion. ECHO shows normal left ventricle. There is ejection fraction of 30 to 35% with mild mitral and tricuspid regurgitation. Post- CM -Cardiology on board, Dr. 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 HTN: Now well-controlled. -Completed magnesium sulfate therapy for seizure prophylaxis -Continue medications as above - Needs close follow up with OB provider and primary care physician. Yaw Pena Dr., MD R2 Oct 28, 2016 09:38
[2016-10-28] MEDS: LACTATED RINGER'S 1000 ML INJ 1,000 ML IV SCH (10:02)
[2016-10-28] MEDS ORDERED: LISI10TA3 PO (12:14)
[2016-10-28] MEDS ORDERED: CARV12.5 PO (12:14)
[2016-10-28] MEDS ORDERED: Spironolactone PO (12:14)
--- NOTE | 2016-10-28 12:15 | HHI.DCPOC ---
Discharge Care Plan Diagnosis: (1) hypertension (2) cardiomyopathy (3) Preeclampsia (4) HTN (hypertension) Goals to Promote Your Health * To prevent worsening of your condition and complications * To maintain your health at the optimal level Directions to Meet Your Goals Take your medications as prescribed Follow your dietary instruction Follow activity as directed Keep your appointments as scheduled Take your immunizations and boosters as scheduled If your symptoms worsen call your PCP, if no PCP go to Urgent Care Center or Emergency Room Smoking is Dangerous to Your Health. Avoid second hand smoke Call the 24-hour hour crisis hotline for domestic abuse at Yaw Bansal MD R2 Oct 28, 2016 12:15
--- NOTE | 2016-10-28 12:16 | PD.CARD.PN ---
Subjective Subjective Remarks No CP or SOB, feels much better Objective Medications Current Medications Medications (Trade) Dose Ordered Sig/Sandra Route Start Time Stop Time Status Last Admin IV Flush 2 ml 2 ml UNSCH PRN IVF 10/26/16 05:15 10/26/16 06:04 (Lr 1000 ml Inj) 1,000 ml @ 75 mls/hr [id number] IV 10/26/16 07:46 10/26/16 10:00 (NS Flush) 2 ml UNSCH PRN IV 10/26/16 08:00 10/26/16 10:03 IV Flush 2 ml 2 ml BID IV 10/26/16 09:00 10/28/16 08:16 (Magnesium Sulfate 40 Gm Premix) 1,000 ml @ 50 mls/hr Q20H IV 10/26/16 07:46 10/26/16 10:02 (Calcium Gluconate Inj) 1 gm UNSCH PRN IV PUSH 10/26/16 08:00 (Tylenol) 650 mg Q4H PRN PO 10/26/16 08:00 10/27/16 05:15 (Zofran Inj) 4 mg Q6H PRN IV 10/26/16 08:00 (Bactrim Ds 800-160 Mg) 1 tab Q12HR PO 10/26/16 09:00 10/28/16 08:15 (Prinivil) 10 mg DAILY PO 10/26/16 14:00 10/28/16 08:16 (Aldactone) 25 mg DAILY PO 10/26/16 14:00 10/28/16 08:16 Vital Signs / I&O Vital Signs Date Time Temp Pulse Resp B/P Pulse Ox O2 Delivery O2 Flow Rate FiO2 10/28/16 12:00 98.7 94 18 122/68 97 10/28/16 12:00 83 10/28/16 11:00 86 10/28/16 10:00 78 10/28/16 09:00 92 10/28/16 08:00 98.8 83 16 112/62 98 10/28/16 08:00 93 10/28/16 07:00 72 10/28/16 06:00 76 10/28/16 05:00 76 10/28/16 04:40 98.7 76 16 109/66 95 10/28/16 04:00 74 10/28/16 03:00 82 10/28/16 02:00 74 10/28/16 01:00 92 10/28/16 00:38 98.7 82 16 124/86 98 10/28/16 00:00 88 10/27/16 23:00 87 10/27/16 22:00 92 10/27/16 21:00 86 10/27/16 20:39 98.0 94 16 135/89 99 10/27/16 20:00 94 10/27/16 19:00 82 10/27/16 18:00 94 10/27/16 17:00 90 10/27/16 16:00 97.9 82 18 127/85 97 10/27/16 16:00 87 10/27/16 15:00 90 10/27/16 14:00 90 10/27/16 13:00 94 10/27/16 12:30 97.8 88 16 110/74 99 I/O 10/27/16 10/27/16 10/27/16 10/28/16 10/28/16 10/28/16 07:00 15:00 23:00 07:00 15:00 23:00 Intake Total 1220 ml 720 ml Output Total 500 ml Balance 1220 ml 220 ml Intake Oral 1220 ml 720 ml IV Total 0 ml Output Urine Total 500 ml # Voids 4 2 # Bowel Movements 0 0 Physical Exam GENERAL: SKIN: Warm and dry. HEAD: Normocephalic. EYES: No scleral icterus. No injection or drainage. NECK: Supple, trachea midline. No JVD or lymphadenopathy. CARDIOVASCULAR: Regular rate and rhythm without murmurs, gallops, or rubs. RESPIRATORY: Breath sounds equal bilaterally. No accessory muscle use. GASTROINTESTINAL: Abdomen soft, non-tender, nondistended. MUSCULOSKELETAL: No cyanosis, or edema. Laboratory Last Impressions Chest X-Ray 10/26/16 0000 Signed Impressions: Service Date/Time: Wednesday, October 26, 2016 05:46 - CONCLUSION: No acute disease. Arvidn Poole MD Laboratory Tests Test 10/26/16 10/26/16 10/26/16 10/26/16 05:10 05:11 05:20 05:50 White Blood Count 16.4 TH/MM3 Red Blood Count 3.70 MIL/MM3 Hemoglobin 10.5 GM/DL Hematocrit 31.9 % Mean Corpuscular Volume 86.4 FL Mean Corpuscular Hemoglobin 28.4 PG Mean Corpuscular Hemoglobin 32.9 % Concent Red Cell Distribution Width 14.7 % Platelet Count 521 TH/MM3 Mean Platelet Volume 8.2 FL Neutrophils (%) (Auto) 76.7 % Lymphocytes (%) (Auto) 14.4 % Monocytes (%) (Auto) 6.7 % Eosinophils (%) (Auto) 0.9 % Basophils (%) (Auto) 1.3 % Neutrophils # (Auto) 12.6 TH/MM3 Lymphocytes # (Auto) 2.4 TH/MM3 Monocytes # (Auto) 1.1 TH/MM3 Eosinophils # (Auto) 0.2 TH/MM3 Basophils # (Auto) 0.2 TH/MM3 CBC Comment DIFF FINAL Differential Comment Sodium Level 140 MEQ/L Potassium Level 4.0 MEQ/L Chloride Level 106 MEQ/L Carbon Dioxide Level 23.3 MEQ/L Anion Gap 11 MEQ/L Blood Urea Nitrogen 11 MG/DL Creatinine 0.74 MG/DL Estimat Glomerular Filtration 90 ML/MIN Rate Random Glucose 124 MG/DL Calcium Level 8.8 MG/DL Total Bilirubin 0.3 MG/DL Aspartate Amino Transf 29 U/L (AST/SGOT) Alanine Aminotransferase 31 U/L (ALT/SGPT) Alkaline Phosphatase 136 U/L Total Protein 6.8 GM/DL Albumin 2.4 GM/DL B-Type Natriuretic Peptide 834 PG/ML Prothrombin Time 10.0 SEC Prothromb Time International 0.9 RATIO Ratio Activated Partial 29.4 SEC Thromboplast Time Urine Color YELLOW Urine Turbidity HAZY Urine pH 7.0 Urine Specific [place] 1.010 Urine Protein TRACE mg/dL Urine Glucose (UA) NEG mg/dL Urine Ketones NEG mg/dL Urine Occult Blood MOD Urine Nitrite NEG Urine Bilirubin NEG Urine Urobilinogen LESS THAN 2.0 MG/DL Urine Leukocyte Esterase LARGE Urine RBC /hpf Urine WBC 80 /hpf Urine Squamous Epithelial 1 /hpf Cells Urine Renal Epithelial Cells 4 /hpf Urine Bacteria RARE /hpf Urine Mucus FEW /lpf Microscopic Urinalysis Comment CULTURE INDICATED Imaging Last Impressions Chest X-Ray 10/26/16 0000 Signed Impressions: Service Date/Time: Wednesday, October 26, 2016 05:46 - CONCLUSION: No acute disease. Arvind Poole MD Assessment and Plan Problem List: (1) cardiomyopathy (2) HTN (hypertension) (3) Preeclampsia Assessment and Plan Continue tx for CHF with CINDY-I, beta laxmi, spironolactone (titrate carvedilol ). Increase activity. Discharge home. 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 She will need an echo in 3 months to reevaluate her LV function. Gee Menezes MD Oct 28, 2016 12:16
--- NOTE | 2016-10-28 12:22 | HHI.DS ---
Discharge Summary Admission Date Oct 27, 2016 at 11:01 Discharge Date: Oct 28, 2016 Admitting Diagnosis induced hypertension/preeclampsia abhishek- cardiomyopathy with heart failure (1) HTN (hypertension) Diagnosis: Principal (2) Preeclampsia Diagnosis: Principal (3) cardiomyopathy Diagnosis: Principal (4) hypertension Diagnosis: Principal [facility] cardiology Procedures Echocardiogram, EKG, chest x-ray CBC/BMP: 10/26/16 0510 10/26/16 0510 Significant Findings Laboratory Tests Test 10/26/16 10/26/16 10/26/16 05:10 05:11 05:50 White Blood Count 16.4 TH/MM3 (4.0-11.0) Red Blood Count 3.70 MIL/MM3 (4.00-5.30) Hemoglobin 10.5 GM/DL (11.6-15.3) Hematocrit 31.9 % (35.0-46.0) Platelet Count 521 TH/MM3 (150-450) Neutrophils (%) (Auto) 76.7 % (16.0-70.0) Neutrophils # (Auto) 12.6 TH/MM3 (1.8-7.7) Monocytes # (Auto) 1.1 TH/MM3 (0-0.9) Random Glucose 124 MG/DL (74-106) Alkaline Phosphatase 136 U/L (45-117) Albumin 2.4 GM/DL (3.4-5.0) B-Type Natriuretic Peptide 834 PG/ML (0-100) Urine Turbidity HAZY (CLEAR) Urine Occult Blood MOD (NEG) Urine Leukocyte Esterase LARGE (NEG) Urine WBC 80 /hpf (0-5) Urine Bacteria RARE /hpf (NONE) Urine Mucus FEW /lpf (OCC) Imaging Last 72 hours Impressions Chest X-Ray 10/26/16 0000 Signed Impressions: Service Date/Time: Wednesday, October 26, 2016 05:46 - CONCLUSION: No acute disease. Arvind Poole MD PE at Discharge GENERAL: Resting in bed Skin: No rashes HEENT: Normocephalic, moist mucous membranes Neck: No JVD, no thyromegaly CARDIOVASCULAR: Regular rate and rhythm without murmurs, gallops, or rubs. Normal pulses and capillary refill. RESPIRATORY: Breath sounds equal bilaterally. No accessory muscle use. No crackles or wheezes. ABDOMEN/GI: Abdomen soft, non-tender. Fundus: Firm, non-tender below umbilicus. GENITOURINARY: Light bleeding. EXTREMITIES: No edema Hospital Course 31 year old about one week post- after induced vaginal delivery for induced hypertension. She is here for abhishek- cardiomyopathy and elevated blood pressure. Before admission she was having orthopnea and elevated blood pressures at home. This morning she is resting in bed. Lochia is minimal. She is ambulating without difficulty. She is not experiencing exertional dyspnea. She is not experiencing orthopnea. She has completed a course of magnesium sulfate for seizure prophylaxis. Her blood pressures have been normal since day of admission. She has no chest pain, shortness of breath, nausea, vomiting, or abdominal pain. She reports no edema. She has a good appetite. Assessment/Plan Assessment and Plan 31-year-old female , one-week post- status post induced vaginal delivery in [place] for induced hypertension. She presented to OB ED with SOB and HTN at home in 170s/110s range, concerning for acute congestive heart failure. BP now well-controlled. EKG sinus rhythm. CXR showing no evidence of cardiac enlargement or effusion. ECHO shows normal left ventricle. There is ejection fraction of 30 to 35% with mild mitral and tricuspid regurgitation. Post- CM -Cardiology on board, Dr. Menezes -Coreg 6.25 mg bid -Lisinopril 10 mg daily - Spironolactone 25 mg daily - Will need close follow up with repairer cylinder heads, follow up echo, close monitoring , titration of medications. HTN: Now well-controlled. -Completed magnesium sulfate therapy for seizure prophylaxis -Continue medications as above - Needs close follow up with OB provider and primary care physician. Discharge Plan: - She will need very close follow up with cardiology to follow the course of her heart failure - She will need monitoring with regular echocardiograms - She should take all medications strictly as prescribed - She needs to follow closely with assistant public defender for induced hypertension with regular blood pressure checks. - She should follow with her primary care physician. - Instructions given on what warrants return to hospital. Pt Condition on Discharge: Fair Discharge Disposition: Discharge Home Discharge Instructions DIET: Follow Instructions for: As Tolerated, No Restrictions Activities you can perform: Regular-No Restrictions Follow up Referrals: Cardiology - 1 Week COOL [employer]ING INST[employer]ER - 1 Week Physician - 1 Week New Medications: Carvedilol (Coreg) 12.5 Mg Tab 12.5 MG PO BID #60 TAB Lisinopril (Lisinopril) 10 Mg Tab 10 MG PO DAILY #30 TAB ([Spironolactone]) 25 MG TAB 25 MG PO DAILY #30 TAB Discontinued Medications: Carvedilol (Coreg) 6.25 Mg Tab 6.25 MG PO BID #60 Ref 0 TAB Lisinopril (Lisinopril) 10 Mg Tab 10 MG PO DAILY #30 Ref 0 TAB Spironolactone (Spironolactone) 25 Mg Tab 25 MG PO DAILY #30 Ref 0 TAB Yaw Bansal MD R2 Oct 28, 2016 12:21
[2016-10-28] MEDS ORDERED: CARVEDILOL 12.5 MG TAB PO SCH (21:00)
[2016-12-06] MEDS ORDERED: CARV12.5 PO (17:18)
== END 2016-10-28 17:00 | disposition home or self-care (01) | DRG 776 ==
LOC: NEPC 04:38 → H2EB 07:41 → OBSVTOIN 10-27 11:01 → HCIS 10-27 12:41
PROVIDERS: ADMIT Obstetrics & Gynecology Maternal & Fetal Medicine; ATTEND Obstetrics & Gynecology Maternal & Fetal Medicine
DX: O90.3 Peripartum cardiomyopathy (principal); I50.9 Heart failure, unspecified; O13.5 Gestational [pregnancy-induced] hypertension without significant proteinuria, complicating the puerperium; O99.335 Smoking (tobacco) complicating the puerperium; F17.210 Nicotine dependence, cigarettes, uncomplicated
CPT/HCPCS: 71010; 80053; 81001; 83880; 85025; 85610; 85730; 87086; 93005; 93306; 96374; 96375; G0378; J0360; J2765; J3475; J7120

== ENCOUNTER 2017-01-19 14:57 | Emergency (ER) | payer MEDICAID ==
[~2017-01-19] VITALS: Ht 157.5 cm; Wt 53.0 kg
[~2017-01-19 14:57] MED LIST changes: +CARV12.5 PO; +LISI10TA3 PO; -POLY10O OD; +Spironolactone PO; -Z.0.NO CURRENT MEDS; -[UNRECOGNIZED DRUG - CODE] OD
[2017-01-19 14:59] VITALS: BP 116/79; PULSE 78; RESP 20; TEMP 97.8; O2SAT 98
[2017-01-19] MEDS ORDERED: HYDR25TA5 PO (15:21)
--- NOTE | 2017-01-19 15:32 | PD ---
HPI Chief Complaint: Headache Time Seen by Provider: 15:09 Travel History International Travel<30 days: No Contact w/Intl Traveler<30days: No Traveled to known affect area: No History of Present Illness HPI 31-year-old female complains of a mild generalized headache which she typically experiences during episodes of high blood pressure. She forgot to take her lisinopril and carvedilol on time this morning however did take them. In the ER her blood pressure is 116/79. She has no other symptom to offer right now. She has follow-up with cardiology. She notes she was diagnosed with cardiomyopathy and hypertension during about 3 months ago. She follows with Dr Menezes. History Past Medical Histgory Medical History: Denies Significant Hx Tetanus Vaccination: > 5 Years LMP: 01/14/17 Social History Alcohol Use: No Tobacco Use: Yes (1/2 PPD) Allergies-Medications (Allergen,Severity, Reaction): Coded Allergies: No Known Allergies (Verified , 01/19/17) Reported Meds & Prescriptions Reported Meds & Active Scripts Active Coreg (Carvedilol) 12.5 Mg Tab 12.5 Mg PO BID Lisinopril 10 Mg Tab 10 Mg PO DAILY Reported Hydrochlorothiazide 25 Mg Tab 25 Mg PO DAILY Review of Systems Except as stated in HPI: all other systems reviewed are Neg Physical Exam Narrative GENERAL: 31 yo F, WNWD, NAD SKIN: Warm and dry. HEAD: Atraumatic. Normocephalic. EYES: Pupils equal and round. No scleral icterus. No injection or drainage. ENT: No nasal bleeding or discharge. Mucous membranes pink and moist. NECK: Trachea midline. No JVD. CARDIOVASCULAR: Regular rate and rhythm. RESPIRATORY: No accessory muscle use. Clear to auscultation. Breath sounds equal bilaterally. GASTROINTESTINAL: Abdomen soft, non-tender, nondistended. Hepatic and splenic margins not palpable. MUSCULOSKELETAL: Extremities without clubbing, cyanosis, or edema. No obvious deformities. NEUROLOGICAL: Awake and alert. No obvious cranial nerve deficits. Motor grossly within normal limits. Five out of 5 muscle strength in the arms and legs. Normal speech. PSYCHIATRIC: Appropriate mood and affect; insight and judgment normal. Data Data Last Documented VS Vital Signs Date Time Temp Pulse Resp B/P Pulse Ox O2 Delivery O2 Flow Rate FiO2 01/19/17 15:17 78 18 99 Room Air 01/19/17 14:59 97.8 116/79 VS reviewed [facility] Medical Screen Exam Complete: Yes Emergency Medical Condition: No Narrative Course A medical screening exam was performed: At the time of evaluation the presenting medical condition was determined not to be of an emergent nature. The patient was given the option of receiving additional care, but declined. Patient was given options for additional community resources from which to obtain care. The Patient Has Been advised to seek medical attention for their presenting complaint. The patient has been advised to return to the ER at any time if an emergent condition develops. Primary Impression: Encounter for medical screening examination Referrals: Gee Menezes MD SCHEDULED Additional Instructions: You have a choice when it comes to health care, and we are glad that you chose [facility]. Hopefully, we have met your expectations on today's visit. You are welcome to return to [facility] at any time, as we are committed to meeting the health care needs of our community. Med/Other Pt SpecificInfo: No Change to Meds Disposition: 01 DISCHARGE HOME Condition: Stable Spencer Acevedo MD January 19, 2017 15:32
== END 2017-01-19 16:31 | disposition home or self-care (01) ==
LOC: NEPD 14:57
DX: R51 Headache (principal)
CPT/HCPCS: 99281

== ENCOUNTER 2018-02-09 18:10 | Emergency (ER) | payer SELFPAY ==
[~2018-02-09] VITALS: Ht 160 cm; Wt 50.0 kg
[~2018-02-09 18:10] MED LIST changes: +HYDR25TA5 PO; -Spironolactone PO
[2018-02-09 18:17] VITALS: BP 121/76; PULSE 84; RESP 16; TEMP 98; O2SAT 98
[2018-02-09 19:03] LABS: BACTERIA, URINE MOD /hpf; BILIRUBIN, URINE NEG (NEG); BLOOD, URINE MOD (NEG); GLUCOSE,URINE NEG (NEG); KETONE, URINE NEG (NEG); MUCUS URINE FEW /lpf (OCC); NITRITE,URINE NEG (NEG); SQUAMOUS EPITHELIAL CELL URINE 3 /hpf (0-5); URINE COLOR YELLOW (YELLW/STRAW); URINE LEUKOCYTE ESTERASE LARGE (NEG); WHITE BLOOD CELL CLUMPS FEW
== END 2018-02-09 20:06 | disposition left against medical advice (07) ==
LOC: NED 18:10
DX: N39.0 Urinary tract infection, site not specified (principal)
CPT/HCPCS: 81001; 86403; 87077; 87086; 87186; 99281